=== PATIENT | female | born 1985 | race Caucasian/White ===

== ENCOUNTER → 2024-02-18 09:44 | Outpatient (REF) | payer OTHER, SELFPAY | LOC: HWRAD 09:44 | PROVIDERS: ATTENDING PHYSICIAN Registered Nurse | DX: R10.30 Lower abdominal pain, unspecified (principal) | CPT/HCPCS: 76830; 76856 ==

== ENCOUNTER → 2024-04-16 13:25 | Outpatient (REF) | payer OTHER, SELFPAY | LOC: HWRAD 13:25 | PROVIDERS: ATTENDING PHYSICIAN Registered Nurse | DX: R10.84 Generalized abdominal pain (principal) | CPT/HCPCS: 74177; Q9967 ==